=== PATIENT | male | born 1955 | race Caucasian/White ===

== ENCOUNTER 2017-08-13 06:48 | Inpatient (IN) | payer MEDICAID ==
[2017-08-13] VITALS (8 sets, daily range): BP systolic 132–162; BP diastolic 74–83
[~2017-08-13] VITALS: Ht 165.1 cm; Wt 62.9 kg
[~2017-08-13 06:48] MED LIST: ASPI-1159 PO; CILO100T PO; FENO145 PO; LOSA25TA12 PO
[2017-08-13] MEDS ORDERED: CLOP75TA16 PO (07:15)
[2017-08-13] MEDS ORDERED: IOHEXOL-300 100 ML BOTTLE ONE (08:06)
[2017-08-13] MEDS ORDERED: LIDOCAINE HCL 1% 20ML VIAL (Pyxis) INJ ONE (08:07)
[2017-08-13] MEDS ORDERED: FENTANYL CITRATE/PF 50MCG/ML 2ML VIAL ONE (08:22)
[2017-08-13] MEDS ORDERED: MIDAZOLAM HCL 2 MG/2 ML VIAL ONE ×2 (08:22→08:44)
[2017-08-13] MEDS ORDERED: HEPARIN SODIUM 1,000 UNIT/1ML VIAL IV ONE ×3 (08:24→14:55)
[2017-08-13] MEDS ORDERED: ATROPINE SULFATE 0.1MG/ML 10ML DISP.SYRIN ONE (08:35)
[2017-08-13] MEDS ORDERED: IOVERSOL 240MG/ML 100ML BOTTLE IV ONE (08:45)
[2017-08-13] MEDS ORDERED: HYDROMORPHONE HCL/PF 2MG/ML (OR) ONE (08:47)
[2017-08-13] MEDS ORDERED: IODIXANOL 320MG/ML 100 ML BOTTLE IV ONE (09:23)
[2017-08-13] MEDS ORDERED: ASPIRIN 325MG TABLET ONE (10:47)
[2017-08-13] MEDS ORDERED: CLOPIDOGREL 75MG TABLET ONE (10:47)
[2017-08-13] MEDS ORDERED: ACETAMINOPHEN 325MG TABLET PO PRN (11:15)
[2017-08-13] MEDS ORDERED: CEFAZOLIN 1000MG PREMIX 50 ML IV ONE (13:00)
[2017-08-13] MEDS ORDERED: NICARDIPINE 100MCG/ML 10ML VIAL (CATH LAB) IV ONE (14:55)
[2017-08-13] MEDS ORDERED: NITROGLYCERIN 50MCG/ML 10ML VIAL (CATH LAB) IV ONE (14:55)
[2017-08-13] MEDS ORDERED: ZOLPIDEM TARTRATE 5MG TABLET PO PRN (21:00)
[2017-08-14] VITALS (7 sets, daily range): BP systolic 124–154; BP diastolic 53–81
[2017-08-14 07:02] LABS: BASOPHILS % 0.8 % (0.0-2.0); EOSINOPHILS % 1.9 % (0.0-5.0); HEMOGLOBIN. 12.8 g/dL (14.0-18.0); LYMPHOCYTES % 9.7 % (20.0-50.0); MEAN CORPUSCULAR HEMOGLOBIN 34.3 pg (28.0-32.0); MEAN PLATELET VOLUME 6.6 fl (7.4-10.4); NEUTROPHILS % 81.6 % (40.0-76.0); PLATELET 277 x1000/uL (130-400); RED BLOOD CELL COUNT 3.74 mill/uL (4.7-6.1); RED CELL DISTRIBUTION WIDTH 13.1 % (11.6-14.6)
[2017-08-14 07:33] LABS: CARBON DIOXIDE 26 mEq/L (21-32); CHLORIDE 104 mEq/L (98-107)
[2017-08-14] MEDS ORDERED: LOSARTAN POTASSIUM 25 MG TABLET PO SCH (09:00)
[2017-08-14] MEDS ORDERED: ASPIRIN 81MG EC TABLET PO SCH (09:00)
[2017-08-14] MEDS ORDERED: FENOFIBRATE NANOCRYSTALLIZED 145MG TABLET PO SCH (09:00)
[2017-08-14] MEDS ORDERED: CLOPIDOGREL 75MG TABLET PO SCH (09:00)
[2017-08-14] MEDS ORDERED: POTASSIUM CHLORIDE 20MEQ TABLET SR PO NR (09:45)
== END 2017-08-14 12:45 | disposition home or self-care (01) | DRG 175 ==
LOC: CCL 06:48 → 3WST 06:49
PROVIDERS: ADMIT Specialist; ATTEND Specialist
PROC: 027037Z Dilation of Coronary Artery, One Artery with Four or More Drug-eluting Intraluminal Devices, Percutaneous Approach (ICD-10-PCS; principal; 2017-08-13)
PROC: B2111ZZ Fluoroscopy of Multiple Coronary Arteries using Low Osmolar Contrast (ICD-10-PCS; 2017-08-13)
DX: I25.110 Atherosclerotic heart disease of native coronary artery with unstable angina pectoris (principal); I11.9 Hypertensive heart disease without heart failure; E83.51 Hypocalcemia; I73.9 Peripheral vascular disease, unspecified; E78.5 Hyperlipidemia, unspecified; Z79.02 Long term (current) use of antithrombotics/antiplatelets; Z79.82 Long term (current) use of aspirin
CPT/HCPCS: 36415; 80048; 85025; 85347; 92928; 93005; 93454; C1725; C1769; C1887; C1893; J0461; J0690; J1170; J1644; J2250; J3010; J3490; J7050; Q9967